=== PATIENT | male | born 1980 | race Caucasian/White ===

== ENCOUNTER → 2017-07-04 | Outpatient (CLI) | payer MEDICARE | LOC: YCFC.O 16:57 | PROVIDERS: ATTEND Nurse Practitioner Family | DX: I10 Essential (primary) hypertension (principal); E78.2 Mixed hyperlipidemia; F20.89 Other schizophrenia; G40.209 Localization-related (focal) (partial) symptomatic epilepsy and epileptic syndromes with complex partial seizures, not intractable, without status epilepticus; E11.65 Type 2 diabetes mellitus with hyperglycemia ==

== ENCOUNTER → 2017-10-15 | Outpatient (CLI) | payer MEDICARE | END | disposition home or self-care (01) | LOC: YCFC.O 16:17 | PROVIDERS: ATTEND Nurse Practitioner Family | DX: G40.209 Localization-related (focal) (partial) symptomatic epilepsy and epileptic syndromes with complex partial seizures, not intractable, without status epilepticus (principal) ==

== ENCOUNTER → 2018-04-30 | Outpatient (CLI) | payer MEDICARE | LOC: YCFC.O 08:44 | PROVIDERS: ATTEND Nurse Practitioner Family | DX: E78.2 Mixed hyperlipidemia (principal); R73.01 Impaired fasting glucose; I10 Essential (primary) hypertension; G40.209 Localization-related (focal) (partial) symptomatic epilepsy and epileptic syndromes with complex partial seizures, not intractable, without status epilepticus ==

== ENCOUNTER 2019-01-19 15:53 | Emergency (ER) | payer MEDICARE ==
--- NOTE | 2019-01-19 16:15 | ED.PDOC ---
History of Present Illness - General Time Seen by Provider: 01/19/19 16:09 Source: patient, family Exam Limitations: no limitations - History of Present Illness Initial Comments: THIS PATIENT COMES TO THE ED WITH TREMORS ON THE HANDS, ONSET THIS AM. HE HAS SCHIZO-AFFECTIVE DISORDER, ON INVEGA AND PERPHEAZINE. HE ALSO HAS HTN AND DIABETES. DENIES ANY CHEST PAIN. Occurred: this morning Method of Injury: unknown Improving Factors: nothing Allergies/Adverse Reactions: Allergies NO KNOWN ALLERGY Allergy (Verified 08/20/16 13:26) Home Medications: Ambulatory Orders Paliperidone [Invega] 12 mg PO DAILY 10/20/14 Benztropine Mesylate [Cogentin] 1 mg PO BID 08/20/16 Benztropine Mesylate [Cogentin] 1 mg PO BID #10 tab 08/20/16 Citalopram Hydrobromide [Celexa] 40 mg PO DAILY 08/20/16 Hydroxyzine Pamoate [Vistaril] 100 mg PO BEDTIME 08/20/16 cloNAZepam [KlonoPIN] 0.5 mg PO TID 08/20/16 metFORMIN HCL [Glucophage] 500 mg PO BID 08/20/16 LORazepam [Ativan] 0.5 mg PO BID #16 tab 01/19/19 Review of Systems - Review of Systems Constitutional: States: no symptoms reported EENTM: States: no symptoms reported Respiratory: States: no symptoms reported Cardiology: States: no symptoms reported Gastrointestinal/Abdominal: States: no symptoms reported Neurological: States: tremors Endocrine: States: no symptoms reported Hematologic/Lymphatic: States: no symptoms reported Past Medical History (General) - Patient Medical History Hx Seizures: Yes Hx Stroke: No Hx Dementia: No Hx Asthma: No Hx of COPD: No Hx Cardiac Disorders: No Hx Congestive Heart Failure: No Hx Pacemaker: No Hx Hypertension: No Hx Thyroid Disease: No Hx Diabetes: Yes Hx Gastroesophageal Reflux: No Hx Renal Disease: No Hx Cancer: No Hx of HIV: No Hx Hepatitis C: No Hx MRSA: No Hx Other - free text: SHIZO-AFFECTIVE DISORDER - Vaccination History Hx Tetanus, Diphtheria Vaccination: No Hx Influenza Vaccination: No Hx Pneumococcal Vaccination: No - Social History Hx Tobacco Use: Yes Hx Chewing Tobacco Use: Yes Hx Alcohol Use: No Hx Substance Use: No Hx Substance Use Treatment: No Hx Depression: Yes - schizophrenia Hx Physical Abuse: No Hx Emotional Abuse: No Hx Suspected Abuse: No - Female History Patient : No Family Medical History - Family History Maternal Grandparents Family History: Unknown Living Status: Hx Family Cancer: Yes - breast Physical Exam - Physical Exam General Appearance: Alert, Restless, Well Developed, Well Groomed Eyes, Ears, Nose, Throat Exam: PERRL/EOMI, normal ENT inspection, pale conjunctivae (R), pale conjunctivae (L) Neck: non-tender, full range of motion, supple, normal inspection Cardiovascular/Respiratory: regular rate, rhythm, normal peripheral pulses, no JVD, normal breath sounds Abdominal Exam: non-tender, no organomegaly, no hernia Back Exam: normal inspection Shoulder Exam: normal inspection, non-tender, no evidence of injury Elbow/Forearm Exam: normal inspection, non-tender, no evidence of injury Neuro/Tendon: other - INTERMITTENT TRTEMOR ON BOTH HANDS Mental Status: alert, depressed affect Skin Exam: normal color Progress - Progress Progress: 01/19/19 17:49 REASSESSED: THE TREMOR IS RESOLVED. THE PATIENT ALSO HAS LARGE CAVITY ON THE LEFT LOWER FIRST MOLAR-HE WILL NEED A DENTIST. RETALTIVE WILL TAKE HIM TO THE DENTIST. - Results/Orders Results/Orders: 01/19/19 16:42 URINALYSIS Stat Laboratory Results WBC 9.7 K/mm3 (4.8-10.8) 01/19/19 16:35 RBC 5.31 M/mm3 (4.70-6.10) 01/19/19 16:35 Hgb 15.8 gm/dL (14.0-18.0) 01/19/19 16:35 Hct 46.3 % (42.0-52.0) 01/19/19 16:35 MCV 87.2 fl (80.0-94.0) 01/19/19 16:35 MCH 29.8 pg (27.0-31.0) 01/19/19 16:35 MCHC 34.1 g/dL (33.0-37.0) 01/19/19 16:35 RDW 13.3 % (11.5-14.5) 01/19/19 16:35 Plt Count 329 K/mm3 (130-400) 01/19/19 16:35 MPV 6.7 fl (7.40-10.4) L 01/19/19 16:35 Absolute Neuts (auto) 7.50 K/uL (1.8-6.8) H 01/19/19 16:35 Absolute Lymphs (auto) 1.70 K/uL (1.0-3.4) 01/19/19 16:35 Absolute Monos (auto) 0.40 K/uL (0.2-0.8) 01/19/19 16:35 Absolute Eos (auto) 0.00 K/uL (0.0-0.4) 01/19/19 16:35 Absolute Basos (auto) 0.00 K/uL (0.0-0.1) 01/19/19 16:35 Neutrophils % 77.3 % (42.0-78.0) 01/19/19 16:35 Lymphocytes % 17.9 % (20.0-50.0) L 01/19/19 16:35 Monocytes % 4.2 % (2.0-9.0) 01/19/19 16:35 Eosinophils % 0.2 % (1.0-5.0) L 01/19/19 16:35 Basophils % 0.4 % (0.0-2.0) 01/19/19 16:35 Sodium 132 mmol/L (135-145) L 01/19/19 16:35 Potassium 3.6 mmol/L (3.6-5.0) 01/19/19 16:35 Chloride 95 mmol/L (101-111) L 01/19/19 16:35 Carbon Dioxide 24 mmol/L (21-31) 01/19/19 16:35 Anion Gap 16.6 (12-18) 01/19/19 16:35 BUN 12 mg/dL (7-18) 01/19/19 16:35 Creatinine 0.56 mg/dL (0.6-1.3) L 01/19/19 16:35 BUN/Creatinine Ratio 21.4 (10-20) H 01/19/19 16:35 Random Glucose 128 mg/dL (70-105) H 01/19/19 16:35 Serum Osmolality 265.9 mOsm/L (275-295) L 01/19/19 16:35 Calcium 9.4 mg/dL (8.4-10.2) 01/19/19 16:35 Total Bilirubin 0.4 mg/dL (0.2-1.0) 01/19/19 16:35 AST 24 IU/L (10-42) 01/19/19 16:35 ALT 31 IU/L (10-60) 01/19/19 16:35 Alkaline Phosphatase 80 IU/L (42-121) 01/19/19 16:35 Serum Total Protein 8.8 gm/dL (6.4-8.2) H 01/19/19 16:35 Albumin 4.9 g/dl (3.2-5.5) 01/19/19 16:35 Globulin 3.9 gm/dL (2.3-3.5) H 01/19/19 16:35 Albumin/Globulin Ratio 1.3 (1.1-1.9) 01/19/19 16:35 Phenytoin 7.4 ug/mL (10.0-20.0) L 01/19/19 16:35 Departure - Departure Clinical Impression: Tremor of both hands, Psychogenic disorder, Anxiety attack Time of Disposition: 17:51 Disposition: Discharge to Home or Self Care Condition: Good Instructions: Schizoaffective Disorder (DC) Diet: regular diet Referrals: Yanet Townsend CERTIFIED PHARMACIST ASSISTANT [Primary Care Provider] - 1-2 Weeks Prescriptions: LORazepam [Ativan] 0.5 mg PO BID #16 tab Home Medications: Ambulatory Orders Paliperidone [Invega] 12 mg PO DAILY 10/20/14 Benztropine Mesylate [Cogentin] 1 mg PO BID 08/20/16 Benztropine Mesylate [Cogentin] 1 mg PO BID #10 tab 08/20/16 Citalopram Hydrobromide [Celexa] 40 mg PO DAILY 08/20/16 Hydroxyzine Pamoate [Vistaril] 100 mg PO BEDTIME 08/20/16 cloNAZepam [KlonoPIN] 0.5 mg PO TID 08/20/16 metFORMIN HCL [Glucophage] 500 mg PO BID 08/20/16 LORazepam [Ativan] 0.5 mg PO BID #16 tab 01/19/19
[2019-01-19] MEDS ORDERED: PHENYTOIN SODIUM CAP EXTENDED 100 MG CAP PO ONE (17:44)
[2019-01-19 18:05] VITALS: BP 133/82; TEMP 98; O2SAT 96
== END 2019-01-19 18:04 | disposition home or self-care (01) ==
LOC: ER 15:53
DX: R25.1 Tremor, unspecified (principal); F41.9 Anxiety disorder, unspecified; F25.9 Schizoaffective disorder, unspecified; I10 Essential (primary) hypertension; E11.9 Type 2 diabetes mellitus without complications; R56.9 Unspecified convulsions; Z79.899 Other long term (current) drug therapy; Z87.891 Personal history of nicotine dependence
CPT/HCPCS: 80053; 80185; 85025; J2060

== ENCOUNTER → 2019-08-10 | Outpatient (CLI) | payer MEDICARE | LOC: LAB.O 10:42 | PROVIDERS: ATTEND Nurse Practitioner Family | DX: G40.209 Localization-related (focal) (partial) symptomatic epilepsy and epileptic syndromes with complex partial seizures, not intractable, without status epilepticus (principal) ==

== ENCOUNTER 2020-07-01 11:00 | Emergency (ER) | payer MEDICARE ==
[2020-07-01] MEDS: KETOROLAC TROMETHAMINE INJ 30 MG/ML VIAL IV ONE (11:39)
[2020-07-01] MEDS: ONDANSETRON INJ 4 MG/2 ML VIAL IV ONE (11:39)
--- NOTE | 2020-07-01 12:04 | CT ---
EXAM DESCRIPTION: Abdomen/Pelvis w/o Contrast CLINICAL HISTORY: left flank pain, concern for renal colic COMPARISON: 06/14/2012 TECHNIQUE: CT of the abdomen and pelvis was performed without contrast. Multiple axial images and multiplanar reconstructions were generated. This exam was performed according to our departmental dose-optimization program, which includes automated exposure control, adjustment of the mA and/or kV according to patient size and/or use of iterative reconstruction technique. FINDINGS: Lung bases: Minimal groundglass opacities in the dependent portion of the lower lobes, most likely atelectasis. Solid organs: Obstructing 3 mm calculus in the left ureterovesical junction with mild left hydroureteronephrosis. Additional nonobstructing 2 mm calculus in the lower pole of the left kidney. Mild hepatic steatosis. Fatty replacement of the pancreas. The gallbladder, spleen, right kidney, and adrenal glands are unremarkable on this noncontrast exam. Gastrointestinal: The stomach, small intestine, and large intestine are normal. The appendix is normal. No free fluid or free air. Vascular: Normal caliber of the abdominal aorta on this noncontrast exam. Lymph nodes: No pathologically enlarged lymph nodes are present by CT size criteria. Musculoskeletal and soft tissues: No destructive osseous lesions are present. Small fat-containing umbilical hernia. Urinary bladder and pelvic organs: No additional bladder calculi. The prostate is normal in size. IMPRESSION: 1. Obstructing 3 mm calculus in the left ureterovesical junction with mild left hydroureteronephrosis. 2. Nonobstructing left nephrolithiasis. 3. Hepatic steatosis. 4. Other findings as above. Electronically signed by: Merrick Gayle MD 07/01/2020 12:02 PM CDT
--- NOTE | 2020-07-01 12:09 | ED.PDOC ---
History of Present Illness - General Chief Complaint: General Stated Complaint: L lower back pain Time Seen by Provider: 07/01/20 11:25 Source: patient, family Exam Limitations: no limitations Additional Information: The patient is a 39 year old with history of schizophrenia who presents with left lower back and left flank pain. He notes that the symptoms woke him from sleep this morning and have been constant. The pain is associated with nausea and vomiting. No fevers. At the time of my exam he denies dysuria and hematuria. no weakness, numbness or tingling. No changes to bowel or bladder function. No fevers. No other complaints at this time. - History of Present Illness Timing/Duration: 4-6 hours Severity: severe Improving Factors: nothing Worsening Factors: nothing Associated Symptoms: nausea/vomiting Allergies/Adverse Reactions: Allergies NO KNOWN ALLERGY Allergy (Verified 07/01/20 11:26) Home Medications: Ambulatory Orders Paliperidone [Invega] 12 mg PO DAILY 10/20/14 Benztropine Mesylate [Cogentin] 1 mg PO BID 08/20/16 Benztropine Mesylate [Cogentin] 1 mg PO BID #10 tab 08/20/16 Citalopram Hydrobromide [Celexa] 40 mg PO DAILY 08/20/16 Hydroxyzine Pamoate [Vistaril] 100 mg PO BEDTIME 08/20/16 cloNAZepam [KlonoPIN] 0.5 mg PO TID 08/20/16 metFORMIN HCL [Glucophage] 500 mg PO BID 08/20/16 LORazepam [Ativan] 0.5 mg PO BID #16 tab 01/19/19 Acetaminophen W/ Codeine [Tylenol W/ CODEINE #3] 1 ea PO Q4HR #20 ea 07/01/20 Ondansetron HCl [Zofran] 4 mg PO Q6HR #12 tab 07/01/20 Tamsulosin HCl [Flomax] 0.4 mg PO DAILY #30 cap 07/01/20 Review of Systems - Review of Systems Constitutional: Denies: chills, fever EENTM: States: no symptoms reported Respiratory: States: no symptoms reported Cardiology: States: no symptoms reported Gastrointestinal/Abdominal: States: abdominal pain, nausea, vomiting. Denies: constipation, diarrhea Genitourinary: Denies: discharge, dysuria, frequency, hematuria, pain Musculoskeletal: States: no symptoms reported Skin: States: no symptoms reported Neurological: States: no symptoms reported Endocrine: States: no symptoms reported Hematologic/Lymphatic: States: no symptoms reported Past Medical History (General) - Patient Medical History Hx Seizures: Yes Hx Stroke: No Hx Dementia: No Hx Asthma: No Hx of COPD: No Hx Cardiac Disorders: No Hx Congestive Heart Failure: No Hx Pacemaker: No Hx Hypertension: No Hx Thyroid Disease: No Hx Diabetes: No Hx Gastroesophageal Reflux: No Hx Renal Disease: No Hx Cancer: No Hx of HIV: No Hx Hepatitis C: No Hx MRSA: No Surgical History: no surgical history - Vaccination History Hx Tetanus, Diphtheria Vaccination: No Hx Influenza Vaccination: Yes Hx Pneumococcal Vaccination: No - Social History Hx Tobacco Use: Yes Hx Chewing Tobacco Use: Yes Hx Alcohol Use: No Hx Substance Use: No Hx Substance Use Treatment: No Hx Depression: No Hx Physical Abuse: No Hx Emotional Abuse: No Hx Suspected Abuse: No - Female History Patient is a Female of Child Bearing Age (10 -59 yrs old): No Patient : No Family Medical History - Family History Maternal Grandparents Family History: Unknown Living Status: Hx Family Cancer: Yes - breast Physical Exam - Physical Exam General Appearance: Comfortable, No apparent distress Ears, Nose, Throat: hearing grossly normal Respiratory: no respiratory distress, no accessory muscle use Gastrointestinal/Abdominal: normal bowel sounds, non tender, soft, no organomegaly, no pulsatile mass Back Exam: normal inspection, no CVA tenderness, no vertebral tenderness Extremity: normal range of motion Neurologic: no motor/sensory deficits, alert, oriented x 3 Skin Exam: normal color, warm/dry Progress - Progress Progress: 07/01/20 12:09 Patient reassessed, pain has improved. Repeat abdominal exam is benign. Urine pending, there is no leukocytosis or fever. No surgical abdomen. There is 3mm obstructing stone on left. Will continue outpatient symptomatic management with analgesia, zofran and flomax. He will increase oral fluids and follow up with his primary care provider. Home care instructions and return indications reviewed. - Results/Orders Results/Orders: Laboratory Results - last 24 hr 07/01/20 07/01/20 07/01/20 11:33 11:33 11:50 WBC 10.5 RBC 4.65 L Hgb 13.8 L Hct 39.9 L MCV 85.8 MCH 29.6 MCHC 34.5 RDW 13.1 Plt Count 269 MPV 6.6 L Absolute Neuts (auto) 8.90 H Absolute Lymphs (auto) 1.20 Absolute Monos (auto) 0.40 Absolute Eos (auto) 0.00 Absolute Basos (auto) 0.00 Neutrophils % 84.9 H Lymphocytes % 11.0 L Monocytes % 3.7 Eosinophils % 0.2 L Basophils % 0.2 Sodium 138 Potassium 4.2 Chloride 104 Carbon Dioxide 27 Anion Gap 11.2 L BUN 13 Creatinine 0.79 BUN/Creatinine Ratio 16.5 Random Glucose 145 H Serum Osmolality 278.4 Calcium 9.3 Urine Color Yellow Urine Appearance Sl cloudy Urine pH 5.5 Ur Specific [place] >= 1.030 Urine Protein Trace Urine Glucose (UA) Negative Urine Ketones Trace Urine Blood Large H Urine Nitrite Negative Urine Bilirubin Negative Urine Urobilinogen 0.2 Ur Leukocyte Esterase Negative Urine RBC >50 H Urine WBC 0-1 Ur Epithelial Cells 0-1 Calcium Oxalate Crystal 1+ Urine Bacteria Rare Urine Mucus Large - EKG/XRAY/CT CT: 3mm obstructing stone left ureter CT Ordered: Yes Departure - Departure Clinical Impression: Renal colic on left side Time of Disposition: 12:13 Disposition: Discharge to Home or Self Care Condition: Excellent Departure Forms: ED Discharge - Pt. Copy, Patient Portal Self Enrollment Instructions: Kidney Stones (DC) Diet: resume usual diet Activity: increase activity as tolerated Referrals: Yanet Townsend BATCHER OPERATOR [Primary Care Provider] - 1-2 Weeks Prescriptions: Acetaminophen W/ Codeine [Tylenol W/ CODEINE #3] 1 ea PO Q4HR #20 ea Ondansetron HCl [Zofran] 4 mg PO Q6HR #12 tab Tamsulosin HCl [Flomax] 0.4 mg PO DAILY #30 cap Home Medications: Ambulatory Orders Paliperidone [Invega] 12 mg PO DAILY 10/20/14 Benztropine Mesylate [Cogentin] 1 mg PO BID 08/20/16 Benztropine Mesylate [Cogentin] 1 mg PO BID #10 tab 08/20/16 Citalopram Hydrobromide [Celexa] 40 mg PO DAILY 08/20/16 Hydroxyzine Pamoate [Vistaril] 100 mg PO BEDTIME 08/20/16 cloNAZepam [KlonoPIN] 0.5 mg PO TID 08/20/16 metFORMIN HCL [Glucophage] 500 mg PO BID 08/20/16 LORazepam [Ativan] 0.5 mg PO BID #16 tab 01/19/19 Acetaminophen W/ Codeine [Tylenol W/ CODEINE #3] 1 ea PO Q4HR #20 ea 07/01/20 Ondansetron HCl [Zofran] 4 mg PO Q6HR #12 tab 07/01/20 Tamsulosin HCl [Flomax] 0.4 mg PO DAILY #30 cap 07/01/20
[2020-07-01 12:39] VITALS: BP 129/80; TEMP 97; O2SAT 97
== END 2020-07-01 12:35 | disposition home or self-care (01) ==
LOC: ER 11:00
DX: N13.2 Hydronephrosis with renal and ureteral calculous obstruction (principal); F20.9 Schizophrenia, unspecified; R56.9 Unspecified convulsions; Z79.899 Other long term (current) drug therapy; Z87.891 Personal history of nicotine dependence
CPT/HCPCS: 36415; 74176; 80048; 81001; 85025; J1885; J2405